=== PATIENT | male | born 1995 | race Two or more races ===

== ENCOUNTER 2016-11-12 20:20 | Emergency (ER) | payer MEDICAID ==
[2016-11-12 20:26] VITALS: RESP 20
[2016-11-12] MEDS ORDERED: predniSONE 20 MG TAB PO ONE (21:06)
[2016-11-12] MEDS ORDERED: FAMOTIDINE 20 MG TAB PO ONE (21:06)
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
[2016-11-12 22:56] VITALS: BP 136/87; PULSE 82; TEMP 98.1; O2SAT 94
== END 2016-11-12 22:56 | disposition home or self-care (01) ==
DX: L25.9 Unspecified contact dermatitis, unspecified cause (principal); L50.9 Urticaria, unspecified
CPT/HCPCS: L3925

== ENCOUNTER 2017-03-07 21:24 | Emergency (ER) | payer MEDICAID ==
[2017-03-07 21:40] VITALS: RESP 16; TEMP 98.1
[2017-03-07] MEDS ORDERED: PROPARACAINE 0.5% 15 ML OPHT DROP OP ONE (22:07)
[2017-03-07] MEDS ORDERED: FLUORESCEIN SODIUM 1 MG STRIP OP ONE ×2 (22:10→22:21)
[2017-03-07] MEDS ORDERED: TOBRAMYCIN 0.3% SOLN PREPACK OPHT.BTL TAKEHOME ONE (22:31)
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
[2017-03-07 22:49] VITALS: BP 127/71; PULSE 80; O2SAT 97
== END 2017-03-07 22:49 | disposition home or self-care (01) ==
DX: T15.92XA Foreign body on external eye, part unspecified, left eye, initial encounter (principal); X58.XXXA Exposure to other specified factors, initial encounter; Y99.8 Other external cause status; Y93.89 Activity, other specified

== ENCOUNTER 2017-11-21 19:43 | Emergency (ER) | payer MEDICAID ==
[2017-11-21] MEDS ORDERED: INDOMETHACIN 75 MG PO SCH (21:00)
--- NOTE | 2017-11-21 21:02 | EDPHY ---
General Narrative: CHIEF COMPLAINT: "I think I have gout" HISTORY OF PRESENT ILLNESS: Patient presents with complaints of "I think I have gout." He is referring to pain in the right ankle. The pain has been present since last Saturday, 9 days. No trauma or injury. He does work on his feet for 6-8 hours per shift. He does not run. No repetitive landing motions. He thinks it is gout because he has had this in the past and was told that it was possibly gout. No formal workup. No redness or warmth to the ankle. No pain in the right calf. No swelling of the right calf. No recent travel, trauma or surgery. No history of venous thrombolic embolic event. no other associated complaints or modifying factors. ESTABLISHED ORTHOPEDIST: None REVIEW OF SYSTEMS: Ten systems reviewed and are negative unless otherwise noted in the HPI PAST MEDICAL HISTORY: None PAST SURGICAL HISTORY: None SOCIAL HISTORY: Nonsmoker. No alcohol use. No drug use. Works at [employer] FAMILY HISTORY: Noncontributory EXAMINATION General Appearance: Alert, no distress Cardiovascular: Symmetric DP PT pulses 2+. Good signs of perfusion of the feet. Brisk cap refill Neurological: A&O, sensation to the top of the feeding bottom the fetus symmetric. Strength is symmetric of the ankles, knees and toes. No footdrop Skin: Warm and dry, no rash. No cellulitis. No petechiae or purpura. No warmth to the joint on the left lower extremity. Extremities: Mild tenderness about the ankle over the malleoli. No tenderness of the left midfoot left calcaneus. No tenderness of the left calf or knee. No pain with passive dorsiflexion of the foot. No evidence of DVT. No crepitus or deformity. Range of motion of the fetus symmetric. Psychiatric: Mood and affect normal DIFFERENTIAL DIAGNOSES: Including but not limited to sprain, strain, fracture stress fracture, gout, DVT , pseudogout, autoimmune MDM: 8:55 p.m. Right ankle pain for the past 9 days with suspicion of gout but the patient. Exam is unremarkable. There is no heel tenderness. No midfoot tenderness. No evidence of cellulitis or DVT. The pain is isolated to the ankle only and does not involve the calf. Range of motion is intact but painful. I have ordered an x-ray and indomethacin. 9:15 p.m. X-ray as read by me reveals no acute findings. No signs of cellulitis, septic joint, DVT or abscess. We will treat the patient symptomatically with indomethacin and a trial of colchicine. I will refer him to the on-call primary care physician for further workup. He is comfortable with this plan and discharged home stable condition. SUPERVISION: Patient was independently examined, but I discussed the case with my secondary supervising physician Dr. Bishop ED Precautions: Worsening pain. Erythema, edema, cyanosis, pallor, paresthesia or anesthesia. - History Smoking Status: Never smoked - Objective Vital Signs: Initial Vital Signs Temperature (C) 98.4 F 11/21/17 19:46 Heart Rate 105 H 11/21/17 19:46 Respiratory Rate 18 11/21/17 19:46 Blood Pressure 124/76 H 11/21/17 19:46 O2 Sat (%) 96 11/21/17 19:46 O2 Delivery Mode Room Air Allergies/Adverse Reactions: No Known Allergies Allergy (Unverified 11/12/16 20:23) Home Medications: Medication Instructions Recorded Indomethacin Sr [Indocin Sr 75 mg 75 mg PO DAILY #7 cap.cr 11/21/17 (*)] Departure - Departure Disposition: Home, Routine, Self-Care Clinical Impression: Ankle pain, right Qualifiers: Chronicity: acute Qualified Code(s): M25.571 - Pain in right ankle and joints of right foot Condition: Good Instructions: Gout (ED), Arthralgia (ED), Low Purine Diet (ED) Additional Instructions: 1. Medications as prescribed as needed 2. ED precautions as discussed 3. Follow up with the on-call primary care physician as provided 4. Follow up with the on-call orthopedist as provided Referrals: Renee Michel MD [[facility] [place] Primary Care Provider] - As per Instructions Ajit Delgado MD [Medical Doctor] - As per Instructions Stand Alone Forms: Work Excuse Prescriptions: Indomethacin Sr [Indocin Sr 75 mg (*)] 75 mg PO DAILY #7 cap.cr
[2017-11-21] MEDS ORDERED: OXYCODONE/APAP 5/325MG PREPACK#4 BTL TAKEHOME ONE (21:20)
[2017-11-21] MEDS ORDERED: COLCHICINE 0.6 MG CAP/TAB PO ONE (21:20)
[2017-11-21] MEDS ORDERED: INDOMETHACIN 75 MG PO ONE (21:30)
[2017-11-21 21:36] VITALS: BP 127/71; PULSE 92; RESP 16; TEMP 98.1; O2SAT 93
== END 2017-11-21 21:36 | disposition home or self-care (01) ==
DX: M25.571 Pain in right ankle and joints of right foot (principal)

== ENCOUNTER 2018-04-28 20:06 | Emergency (ER) | payer SELFPAY ==
[2018-04-28 20:11] VITALS: BP 151/83
--- NOTE | 2018-04-28 20:18 | EDPHY ---
H & P Time Seen by Provider: 04/28/18 20:13 HPI/ROS: CHIEF COMPLAINT: Right otalgia x3 days HISTORY OF PRESENT ILLNESS: 22-year-old immunocompetent male complaining of right otalgia and otorrhea for the past 3 days. No barotrauma. No foreign body insertion. No hearing loss. No tinnitus. No dizziness. No nausea or vomiting. No sore throat. No antecedent illness. REVIEW OF SYSTEMS: A ten point review of systems was performed and is negative with the exception of the items mentioned in the HPI PAST MEDICAL & SURGICAL HISTORY: No pertinent medical or surgical history SOCIAL HISTORY: Nonsmoker PHYSICAL EXAM (Prior to examination, patient consented to physical exam, hands were washed and my usual and customary physical exam procedures followed) 1) GENERAL: Well-developed, well-nourished, alert and oriented. Appears to be in no acute distress. 2) HEAD: Normocephalic, atraumatic 3) HEENT: Pupils equal, round, reactive to light bilaterally. Sclera anicteric. Nasopharynx, oropharynx, clear, no lesions. Right ear: EAC is erythematous, tender, pain with palpation of the tragus. There is no debris. The tympanic membrane is grossly intact no erythema. Left ear clear no evidence of otitis media or externa. Bilateral mastoid nontender non boggy 4) NECK: Full range of motion, no meningeal signs. 5) LUNGS: Clear auscultation bilaterally, no wheezes, no rhonchi, no retractions. 6) HEART: Regular rate and rhythm, no murmur, no heave, no gallop. 7) ABDOMEN: No guarding, no rebound, no focal tenderness, negative McBurney's, negative Le's, negative Rovsing's, negative peritoneal sign, 8) MUSCULOSKELETAL: Moving all extremities, no focal areas of tenderness, no obvious trauma. No peripheral edema or discoloration. 9) BACK: No CVA tenderness, no midline vertebral tenderness, no fluctuance, no step-off, no obvious trauma, no visual or palpable abnormality. 10) SKIN: No rash, no petechiae. 11) Psychiatric: Patient is oriented X 3, there is no agitation. DIFFERENTIAL DIAGNOSIS: In no particular include but limited to malignant otitis externa, otitis externa, otitis media, mastoiditis Smoking Status: Never smoked Constitutional: Initial Vital Signs Temperature (C) 36.7 C 04/28/18 20:10 Heart Rate 92 04/28/18 20:10 Respiratory Rate 16 04/28/18 20:10 Blood Pressure 151/83 H 04/28/18 20:10 O2 Sat (%) 95 04/28/18 20:10 O2 Delivery Mode Room Air Allergies/Adverse Reactions: No Known Allergies Allergy (Verified 04/28/18 20:09) Home Medications: Medication Instructions Recorded Ciprofloxacin HCl/Dexameth 4 drop OT BID #1 drops.susp 04/28/18 [Ciprodex Otic Suspension] MDM/Departure - MDM ED Course/Re-evaluation: Evidence of right otitis externa, started on topical antibiotics. Doubt malignant otitis externa. Doubt mastoiditis. Doubt otitis media. I saw this patient independently based on established practice protocols. Care of patient under supervision of secondary supervising physician Dr Isaacs . - Depart Disposition: Home, Routine, Self-Care Clinical Impression: Right otitis externa Qualifiers: Otitis externa type: other infective Chronicity: acute Qualified Code(s): H60.391 - Other infective otitis externa, right ear Condition: Good Instructions: Otitis Externa (ED) Additional Instructions: Return to the ER if you develop new or worsening symptoms if you develop hearing loss dizziness or any other symptoms that concern you Prescriptions: Ciprofloxacin HCl/Dexameth [Ciprodex Otic Suspension] 4 drop OT BID #1 drops.susp Referrals: Trevin Dela Cruz MD [Medical Doctor] - 1-2 days without fail
== END 2018-04-28 20:28 | disposition home or self-care (01) ==
DX: H60.391 Other infective otitis externa, right ear (principal)

== ENCOUNTER 2018-09-14 11:20 | Emergency (ER) | payer SELFPAY ==
--- NOTE | 2018-09-14 11:37 | EDPHY ---
H & P Time Seen by Provider: 09/14/18 11:28 HPI/ROS: CHIEF COMPLAINT: Left great toe pain HISTORY OF PRESENT ILLNESS: 23-year-old male via private vehicle complaining of acute left ankle and great toe pain from earlier this week. He rolled his ankle few days ago is able to bear weight and then started to notice left great toe pain 4 days ago. He denies acute ankle pain. No fall from height. Patient works in construction. Denies known trauma to his great toe. No paresthesia. No discoloration. History of ingrown toenail with no current ingrown toenail complaints. PHYSICAL EXAM (Prior to examination, patient consented to physical exam, hands were washed and my usual and customary physical exam procedures followed) 1) GENERAL: Well-developed, well-nourished, alert and oriented. Appears to be in no acute distress. 2) HEAD: Normocephalic 3) HEENT: Pupils equal, round, reactive to light bilaterally. 4) LUNGS: Breathing comfortably. 5) MUSCULOSKELETAL: No tenderness to palpation of the ankle. Tender to palpation left great toe IP joint. No fluctuance or pain with axial loading of the IP joint. No discoloration. proximal tibia and fibula nontender . No discoloration. No increased warmth. No lymphangitic streaking. No crepitus. 5th MT nontender negative Matute test, compartments soft 6) SKIN: Throughout the foot ankle and toes he has normal coloration, normal temperature, brisk capillary refill 7) VASCULAR: DP,PT pulses and cap refill present and brisk DIFFERENTIAL DIAGNOSIS: in no particular order including but not limited to fracture, sprain, compartment syndrome Procedure: Splint A postop shoe splint was applied by ER x ray technician. After application of the splint I returned and re-examined the patient. The splint was adequately immobilizing the joint and distal to the splint the patient's circulation and sensation were intact. Patient shows no signs of compartment syndrome. Was given orthopedic precautions. Smoking Status: Never smoked Constitutional: Initial Vital Signs Temperature (C) 36.9 C 09/14/18 11:26 Heart Rate 81 09/14/18 11:26 Respiratory Rate 16 09/14/18 11:26 Blood Pressure 144/76 H 09/14/18 11:26 O2 Sat (%) 97 09/14/18 11:26 O2 Delivery Mode Room Air Allergies/Adverse Reactions: No Known Allergies Allergy (Verified 04/28/18 20:09) MDM/Departure - MDM Imaging Results: Imaging Impressions Foot X-Ray 09/14/18 11:34 Impression: No evidence for acute osseous abnormality left foot. Mild soft tissue swelling medially. Images reviewed myself ED Course/Re-evaluation: Doubt infectious pathology such as paronychia, ingrown toenail, felon, septic arthritis. Doubt gout. Reviewed his x-ray with him showing no evidence of osteomyelitis or fracture. He has been given a postop shoe. Recommend elevation. Given orthopedic follow-up information. He feels comfortable being discharged. All questions and concerns addressed by myself. Care of patient under supervision of secondary supervising physician Dr Dick with whom I discussed case. - Depart Disposition: Home, Routine, Self-Care Clinical Impression: Pain of left great toe Condition: Good Instructions: Leg Sprain (ED) Additional Instructions: Return to the ER immediately if you experience discoloration, have worsening pain, numbness, tingling, or any other symptoms that concern you. If you received x-rays in the emergency department today, be advised, that ligamentous , tendon, muscular, and other non-bony injury cannot be fully ruled out. [Try to keep your affected extremity elevated above the level of your chest, and keep cold packs on the affected area, for the next 48 hours.] Referrals: Pacheco Bonilla MD [Medical Doctor] - As per Instructions
[2018-09-14 12:30] VITALS: BP 116/76
== END 2018-09-14 12:29 | disposition home or self-care (01) ==
DX: S99.922A Unspecified injury of left foot, initial encounter (principal); X50.9XXA Other and unspecified overexertion or strenuous movements or postures, initial encounter; Y93.9 Activity, unspecified; Y92.9 Unspecified place or not applicable; Y99.9 Unspecified external cause status
CPT/HCPCS: L4386

== ENCOUNTER 2019-03-20 21:22 | Emergency (ER) | payer MEDICAID, OTHER ==
--- NOTE | 2019-03-20 22:17 | EDPHY ---
H & P Stated Complaint: r ankle pain, denies trauma Time Seen by Provider: 03/20/19 22:17 HPI/ROS: HPI CHIEF COMPLAINT: "I have Gout" HISTORY OF PRESENT ILLNESS: Patient very pleasant 23-year-old male, presents emergency room right ankle pain and swelling. Denies any injury. The patient reports to me that he has had gout 4 times in this right ankle. He typically gets on pain medicine gout medicine and refrain from eating meat and gets better. Patient has never had arthrocentesis. He denies any injured his right ankle. Denies fever, denies redness, denies calf or knee pain. No chills. No rigors. He states that progressively worsening right ankle pain. Patient reports to me that he believes he has gout again. Patient has not followed up with anybody. Past Medical History: Significant medical history for gout per the patient. Past Surgical History: Denies recent surgery Social History: Denies drugs alcohol tobacco. Works as a structural steel worker helper. He is on his feet a large amount of time. Family History: Noncontributory ROS REVIEW OF SYSTEMS: 10 Systems were reviewed and negative with the exception of the elements mentioned in the history of present illness. Exam Constitutional triage nursing summary reviewed, vital signs reviewed, awake/ alert. Eyes normal conjunctivae and sclera, EOMI, PERRLA. HENT normal inspection, atraumatic, moist mucus membranes, no epistaxis, neck supple/ no meningismus, no raccoon eyes. Respiratory clear to auscultation bilaterally, normal breath sounds, no respiratory distress, no wheezing. Cardiovascular rate normal, regular rhythm, no murmur, no edema, distal pulses normal. Gastrointestinal soft, non-tender, no rebound, no guarding, normal bowel sounds, no distension, no pulsatile mass. Genitourinary no CVA tenderness. Musculoskeletal right ankle: Neurovascular intact with good distal pulse, good cap refill, mild swelling noted to the right ankle without any redness. No warmth. No evidence cellulitis, no calf tenderness or calf swelling, no knee discomfort. Warm extremity. Sensation intact. No compartment syndrome. no midline vertebral tenderness, full range of motion, no calf swelling, no tenderness of extremities, no meningismus, good pulses, neurovascularly intact. Skin pink, warm, & dry, no rash, skin atraumatic. Neurologic awake, alert and oriented x 3, AAOx3, moves all 4 extremities equally, motor intact, sensory intact, CN II-XII intact, normal cerebellar, normal vision, normal speech. Psychiatric normal mood/affect. Heme/Lymph/Immune no lymphadenopathy. Differential Diagnosis: Includes but is not limited to in a particular order arthritis, pseudogout, gout, septic joint Medical Decision Making: Plan for this patient x-ray right ankle, [place] for pain control, ice pack, elevation, crutches, walking boot I do recommend he has close follow-up with Orthopedics. Given that is sees 4th episode of this I highly recommend he follows up additionally he should refrain from high. Diet. He understands this. He has been recently eating meat. Re-evaluation: Patient re-evaluated this time 11:19 p.m. Resting comfortably no acute distress. He is placed in a walking boot, he had an x-ray that does not show any acute fracture. Walking boot in place. Received pain medicine here he states he feels much better. Right foot is neurovascular intact with good distal pulse, good cap refill, there is some mild swelling noted to the right ankle. Warm extremity. No redness. I do recommend patient follows up with Orthopedics. Discussed return precautions return emergency room if worsening pain, redness, fever. Prescription given for indomethacin. Follow-up and return precautions discussed he understands return emergency room if develops worsening pain, fever, redness, increasing swelling. Source: Patient - Personal History Current Tetanus Diphtheria and Acellular Pertussis (TDAP): Yes - Medical/Surgical History Hx Asthma: No Hx Chronic Respiratory Disease: No Hx Diabetes: No Hx Cardiac Disease: No Hx Renal Disease: No Hx Cirrhosis: No Hx Alcoholism: No Hx HIV/AIDS: No Hx Splenectomy or Spleen Trauma: No Other PMH: recurrent ingrown toenail L big toe, gout - Social History Smoking Status: Never smoked Constitutional: Initial Vital Signs Temperature (C) 36.5 C 03/20/19 21:26 Heart Rate 96 03/20/19 21:26 Respiratory Rate 16 03/20/19 21:26 Blood Pressure 139/98 H 03/20/19 21:26 O2 Sat (%) 96 03/20/19 21:26 O2 Delivery Mode Room Air Allergies/Adverse Reactions: No Known Allergies Allergy (Verified 04/28/18 20:09) Home Medications: Medication Instructions Recorded Indomethacin 75 mg PO DAILY #7 capsule.er 03/20/19 Ondansetron HCl [Zofran] 4 mg PO Q4-6PRN PRN #10 tablet 03/20/19 Medical Decision Making - Diagnostics Imaging Results: Imaging Impressions Ankle X-Ray 03/20/19 22:28 Impression: Negative right ankle series. - Data Points Medications Given: Discontinued Medications Hydrocodone Bitart/Acetaminophen ([place] 10/325) 1 tab PO EDNOW ONE Stop: 03/20/19 22:30 Last Admin: 03/20/19 22:36 Dose: 1 tab Indomethacin (Indocin) 50 mg PO EDNOW ONE Stop: 03/20/19 22:33 Last Admin: 03/20/19 22:57 Dose: 50 mg Ondansetron HCl (Zofran Odt) 4 mg PO EDNOW ONE Stop: 03/20/19 22:33 Last Admin: 03/20/19 22:35 Dose: 4 mg Departure - Departure Disposition: Home, Routine, Self-Care Clinical Impression: Ankle pain Condition: Good Instructions: Arthralgia (ED), Swollen Joint (ED) Additional Instructions: 1. Keep your leg elevated. 2. Ice pack. 3. Recommend anti-inflammatory pain medicine. 4. Please follow up with a doctor. Been referred to Orthopedics. Referrals: NONE *PRIMARY CARE P,. [Primary Care Provider] - As per Instructions Ajit Delgado MD [Medical Doctor] - As per Instructions Prescriptions: Indomethacin 75 mg PO DAILY #7 capsule.er Ondansetron HCl [Zofran] 4 mg PO Q4-6PRN PRN #10 tablet PRN Reason: Nausea/Vomiting, Use 1st
[2019-03-20] MEDS ORDERED: HYDROCODONE/APAP 10/325 TAB PO ONE (22:29)
[2019-03-20] MEDS ORDERED: ONDANSETRON DISINTEGRATING 4 MG TAB PO ONE (22:32)
[2019-03-20] MEDS ORDERED: INDOMETHACIN 25 MG CAP PO ONE (22:32)
[2019-03-20] MEDS ORDERED: HYDROCODONE/APAP 5/325 TAB ONE (22:34)
[2019-03-20 23:54] VITALS: BP 132/80
== END 2019-03-20 23:54 | disposition home or self-care (01) ==
DX: M25.571 Pain in right ankle and joints of right foot (principal)
CPT/HCPCS: L4386